=== PATIENT | male | born 1980 | race Caucasian/White ===

== ENCOUNTER 2019-09-26 18:59 | Emergency (ER) | payer OTHER ==
[~2019-09-26] VITALS: Ht 180.3 cm; Wt 74.8 kg
[2019-09-26] MEDS ORDERED: AUMENTIN (19:19)
== END 2019-09-26 20:55 | disposition home or self-care (01) ==
LOC: ER 18:59
DX: L03.211 Cellulitis of face (principal)